=== PATIENT | male | born 1940 | race Caucasian/White ===

== ENCOUNTER 2016-07-04 22:04 | Emergency (ER) | payer OTHER ==
--- NOTE | 2016-07-05 00:16 | DIAGNOSTIC IMAGING REPORT ---
PROCEDURE: XR CHEST 2 VIEW INDICATION: CHEST PAIN TECHNIQUE: PA and lateral views. COMPARISON: None. FINDINGS: Allowing for overlying wires and electrodes, lungs are clear. Heart and mediastinum are normal. Thorax is normal. IMPRESSION: 1. Negative chest.
--- NOTE | 2016-07-05 00:35 | DIAGNOSTIC IMAGING REPORT ---
PROCEDURE: CT SINUS/FACIAL BONES W/CONT INDICATION: FACIAL TRAUMA TECHNIQUE: Noncontrast axial images with sagittal and coronal reformations. COMPARISON: Compared to a head CT on 07/04/2016. FINDINGS: There is an old blowout fracture of the medial wall of the right orbit. There is degeneration and calcification of the right orbital globe. Osseous structures are otherwise normal. No evidence of facial fracture. There is mild mucosal thickening in the maxillary sinuses (appears chronic). Sinuses and mastoids are otherwise normal. IMPRESSION: 1. There is an old blowout fracture of the medial right orbit. 2. Associated degeneration and calcification of the right orbital globe. 3. Otherwise negative CT of the facial bones. No evidence of acute fracture. 4. Findings discussed with Dr. Abilio Marinelli.
--- NOTE | 2016-07-05 00:35 | DIAGNOSTIC IMAGING REPORT ---
PROCEDURE: CT HEAD WITHOUT CONTRAST INDICATION: TRAUMA/INJURY TECHNIQUE: Noncontrast axial images with sagittal and coronal reformations. COMPARISON: Compared to a head CT on 02/20/2014. FINDINGS: Mild old small vessel disease of the white matter. Brain and ventricles are otherwise normal. No evidence of an acute process or hemorrhage. Sinuses and mastoids are normal. Degeneration and calcification right orbital globe (no change). IMPRESSION: 1. Mild old small vessel disease. 2. Otherwise negative head CT. No evidence of acute process. 3. Findings discussed with Dr. Abilio Marinelli. All CT scans at this facility use dose modulation, iterative reconstruction, and/or weight-based dosing when appropriate to reduce radiation dose to as low as reasonably achievable.
--- NOTE | 2016-07-05 00:36 | DIAGNOSTIC IMAGING REPORT ---
PROCEDURE: CT CERVICAL SPINE W/O CONTRAST INDICATION: TRAUMA/INJURY TECHNIQUE: Noncontrast axial images with sagittal and coronal reformations. COMPARISON: None. FINDINGS: There are moderate to marked degenerative changes of the cervical spine with multilevel disc space narrowing and moderate facet disease. There are moderately chronically bulging discs C5-6 and C6-7 with moderate narrowing of the central canal and neural foramina. There is an old avulsion fracture of the C7 spinous process with ossification of the ligamentum nuchae (incidental finding). Osseous structures and disc spaces are otherwise normal. No evidence of an acute process or fracture. Alignment is normal. IMPRESSION: 1. Moderate to marked degenerative changes. 2. Moderately chronically bulging discs at C5-6 and C6-7 with moderate narrowing of the central canal and neural foramina. 3. Old avulsion fracture of the C7 spinous process with dystrophic ossification of the ligamentum nuchae. 4. No evidence of acute process or fracture 5. Findings discussed with Dr. Marinelli. All CT scans at this facility use dose modulation, iterative reconstruction, and/or weight-based dosing when appropriate to reduce radiation dose to as low as reasonably achievable.
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
--- NOTE | 2016-07-05 05:16 | ED ORDER SUMMARY ---
..... Patient: JACKELINE GILL OrderSheet [facility] VisitID: [id number] [place] [address] 75y, M Registration Date/Time: 07/04/2016 ORDER SHEET Weight: 113.3 kg (stated) Allergies: NKDA GENERAL ORDERS: Chest 2V Urgent (22:55 07/04/2016 EKoroleva P.A.-C) (Ack 22:56 SRedmond) (23:48 GUnger) Jig Grinder (Continuous) (22:55 07/04/2016 EKoroleva P.A.-C) (Ack 22:56 SRedmond) (23:04 SRedmond) Cardiac Panel Stat (22:56 07/04/2016 EKoroleva P.A.-C) (Ack 22:57 SRedmond) (23:57 RCollier R.N.) PTT Urgent (22:56 07/04/2016 EKoroleva P.A.-C) (Ack 22:57 SRedmond) (23:57 RCollier R.N.) PT with INR Urgent (22:56 07/04/2016 EKoroleva P.A.-C) (Ack 22:57 SRedmond) (23:57 RCollier R.N.) UA-Culture if indicated Urgent (22:56 07/04/2016 EKoroleva P.A.-C) (Ack 22:57 SRedmond) (0:22 CFalkner R.N.) EKG - ER Stat (22:56 07/04/2016 EKoroleva P.A.-C) (Ack 22:56 SRedmond) (23:04 SRedmond) CT Head wo Cont Urgent (22:56 07/04/2016 EKoroleva P.A.-C) (Ack 22:57 SRedmond) (23:48 GUnger) CT Cervical Spine wo Cont Urgent (22:56 07/04/2016 EKoroleva P.A.-C) (Ack 22:57 SRedmond) (23:48 GUnger) CT Sinus/Facial Bones w Cont Urgent (22:56 07/04/2016 EKoroleva P.A.-C) (Ack 22:57 SRedmond) (23:48 GUnger) Ethyl Alcohol Urgent (22:57 07/04/2016 EKoroleva P.A.-C) (Ack 22:57 SRedmond) (23:57 RCollier R.N.) Urine Drug Screen Urgent (22:57 07/04/2016 EKoroleva P.A.-C) (Ack 22:57 SRedmond) (0:22 CFalkner R.N.) MEDICATION ORDERS: Tdap IM 0.5 mL (NOW, per protocol) (00:24 07/05/2016 Adela FLORES) (Ack 0:29 RCollier R.N.) (1:27 RCollier R.N.) KCl PO 20 meq (NOW) (00:37 07/05/2016 Adela FLORES) (Ack 1:08 RCollier R.N.) (1:26 RCollier R.N.) IV FLUIDS: IV Saline Lock (22:56 07/04/2016 EKoroleva P.A.-C) (Ack 23:07 RCollier R.N.) IV NS : initial bolus 500 mL (1000 mL/hr), then 125 mL/hr for 4h (NOW); Urgent (00:29 07/05/2016 Adela FLORES) (Ack 0:29 RCollier R.N.) (1:24 RCollier R.N.) KCl IV 20 meq/100mL (HIGH ALERT MEDICATION, NOW, Run no faster than 10 mEq/hr) (00:37 07/05/2016 Adela FLORES) (Ack 1:08 RCollier R.N.) (1:25 RCollier R.N.) ORDER SHEET NOTES: [Electronically signed by Shabnam Celis R.N. (09:56 07/05/2016)] [Electronically signed by Abilio Marinelli MD (02:39 07/10/2016)] [Electronically locked/signed by Shabnam Celis R.N. (09:56 07/05/2016)]
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
--- NOTE | 2016-07-05 05:16 | ED ORDER SUMMARY ---
..... Patient: JACKELINE GILL [facility] VisitID: [id number] [place] [address] 75y, M Registration Date/Time: 07/04/2016 ORDER SHEET Weight: 113.3 kg (stated) Allergies: NKDA GENERAL ORDERS: Chest 2V Urgent (22:55 07/04/2016 EKoroleva P.A.-C) (Ack 22:56 SRedmond) (23:48 GUnger) Double End Tenon Operator (Continuous) (22:55 07/04/2016 EKoroleva P.A.-C) (Ack 22:56 SRedmond) (23:04 SRedmond) Cardiac Panel Stat (22:56 07/04/2016 EKoroleva P.A.-C) (Ack 22:57 SRedmond) (23:57 RCollier R.N.) PTT Urgent (22:56 07/04/2016 EKoroleva P.A.-C) (Ack 22:57 SRedmond) (23:57 RCollier R.N.) PT with INR Urgent (22:56 07/04/2016 EKoroleva P.A.-C) (Ack 22:57 SRedmond) (23:57 RCollier R.N.) UA-Culture if indicated Urgent (22:56 07/04/2016 EKoroleva P.A.-C) (Ack 22:57 SRedmond) (0:22 CFalkner R.N.) EKG - ER Stat (22:56 07/04/2016 EKoroleva P.A.-C) (Ack 22:56 SRedmond) (23:04 SRedmond) CT Head wo Cont Urgent (22:56 07/04/2016 EKoroleva P.A.-C) (Ack 22:57 SRedmond) (23:48 GUnger) CT Cervical Spine wo Cont Urgent (22:56 07/04/2016 EKoroleva P.A.-C) (Ack 22:57 SRedmond) (23:48 GUnger) CT Sinus/Facial Bones w Cont Urgent (22:56 07/04/2016 EKoroleva P.A.-C) (Ack 22:57 SRedmond) (23:48 GUnger) Ethyl Alcohol Urgent (22:57 07/04/2016 EKoroleva P.A.-C) (Ack 22:57 SRedmond) (23:57 RCollier R.N.) Urine Drug Screen Urgent (22:57 07/04/2016 EKoroleva P.A.-C) (Ack 22:57 SRedmond) (0:22 CFalkner R.N.) MEDICATION ORDERS: Tdap IM 0.5 mL (NOW, per protocol) (00:24 07/05/2016 Adela FLORES) (Ack 0:29 RCollier R.N.) (1:27 RCollier R.N.) KCl PO 20 meq (NOW) (00:37 07/05/2016 Adela FLORES) (Ack 1:08 RCollier R.N.) (1:26 RCollier R.N.) IV FLUIDS: IV Saline Lock (22:56 07/04/2016 EKoroleva P.A.-C) (Ack 23:07 RCollier R.N.) IV NS : initial bolus 500 mL (1000 mL/hr), then 125 mL/hr for 4h (NOW); Urgent (00:29 07/05/2016 Adela FLORES) (Ack 0:29 RCollier R.N.) (1:24 RCollier R.N.) KCl IV 20 meq/100mL (HIGH ALERT MEDICATION, NOW, Run no faster than 10 mEq/hr) (00:37 07/05/2016 Adela FLORES) (Ack 1:08 RCollier R.N.) (1:25 RCollier R.N.) ORDER SHEET NOTES: [Electronically signed by Shabnam Celis R.N. (09:56 07/05/2016)] [Electronically signed by Abilio Marinelli MD (02:39 07/10/2016)] [Electronically locked/signed by Shabnam Celis R.N. (09:56 07/05/2016)]
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
--- NOTE | 2016-07-10 02:39 | ED MED RECONCILIATION SUMMARY ---
Patient: JACKELINE GILL Medication Reconciliation Report [facility] VisitID: [id number] [address] [place] [address] 75y, M Registration Date/Time: 07/04/2016 Weight: 113.3 kg Height/Length: 71 in. BMI: 34.9 ALLERGIES: NKDA The patient's Home Medications are listed below: CONTINUE TAKING THE FOLLOWING MEDICATIONS: Metoprolol 50 mg, daily Simvastatin Oral 40,g, daily The source(s) of the original Home Medication information: Not obtained. The following Medications were given to the patient in the Emergency Department: IV NS IV Fluids bolus 500 mL over 30 minute(s), then 125 mL/hr, administered: 07/05/2016 1:19:00 AM KCL [IVPB] IVPB bolus 0, then 20 meq 50 mL/hr, administered: 07/05/2016 1:20:00 AM KCL [PO] PO 20 meq, administered: 07/05/2016 1:21:00 AM TDAP [IM] IM 0.5 mL, administered: 07/05/2016 1:23:00 AM The following Medications were prescribed to the patient: K-Dur 20 mEq: take 1 orally. Dispense five (5). No refills. Substitution is permissible. -- Abilio Marinelli MD
--- NOTE | 2016-07-10 02:39 | ED MED RECONCILIATION SUMMARY ---
Patient: JACKELINE GILL Medication Reconciliation Report [facility] VisitID: [id number] [address] [place] [address] 75y, M Registration Date/Time: 07/04/2016 Weight: 113.3 kg Height/Length: 71 in. BMI: 34.9 ALLERGIES: NKDA The patient's Home Medications are listed below: CONTINUE TAKING THE FOLLOWING MEDICATIONS: Metoprolol 50 mg, daily Simvastatin Oral 40,g, daily The source(s) of the original Home Medication information: Not obtained. The following Medications were given to the patient in the Emergency Department: IV NS IV Fluids bolus 500 mL over 30 minute(s), then 125 mL/hr, administered: 07/05/2016 1:19:00 AM KCL [IVPB] IVPB bolus 0, then 20 meq 50 mL/hr, administered: 07/05/2016 1:20:00 AM KCL [PO] PO 20 meq, administered: 07/05/2016 1:21:00 AM TDAP [IM] IM 0.5 mL, administered: 07/05/2016 1:23:00 AM The following Medications were prescribed to the patient: K-Dur 20 mEq: take 1 orally. Dispense five (5). No refills. Substitution is permissible. -- Abilio Marinelli MD
--- NOTE | 2016-07-10 02:39 | ED MAR SUMMARY ---
..... Medication Administration Record [facility] [address] [place] [address] Patient: JACKELINE GILL Visit ID: [id number] 75y, M Weight: 113.3 kg Height/Length: 71 in BMI: 34.9 ALLERGIES: NKDA Start 01:19 07/05/2016 Marifer Case R.N., Stop 05:41 07/05/2016 Marifer Case R.N. Medication Administered: IV NS (SALINE), Dose: IV Fluids, Rate: 125 mL/hr, Bolus: 500 mL over 30 minute(s), Dispensed: 1000 mL bag, Site: #1 right AC. Medication Ordered: IV NS : initial bolus 500 mL (1000 mL/hr), then 125 mL/hr for 4h (NOW); Urgent. Start 01:07/05/2016 Marifer Case R.N., Stop 03:11 07/05/2016 Shantel Brooks Medication Administered: KCL [IVPB] (POTASSIUM CHLORIDE), Dose: 20 meq IVPB over 2 hour(s), Rate: 50 mL/hr, Dispensed: 100 mL bag, Site: #1 right AC. Medication Ordered: KCl IV 20 meq/100mL (HIGH ALERT MEDICATION, NOW, Run no faster than 10 mEq/hr). Given 01:07/05/2016 Marifer Case R.N. Medication Administered: KCL [PO] (POTASSIUM CHLORIDE ER), Dose: 20 meq Tablets PO. Medication Ordered: KCl PO 20 meq (NOW). Given 01:07/05/2016 Marifer Case R.N. Medication Administered: TDAP [IM], Dose: 0.5 mL IM. Medication Ordered: Tdap IM 0.5 mL (NOW, per protocol).
--- NOTE | 2016-07-10 02:39 | ED MAR SUMMARY ---
..... Medication Administration Record [facility] [address] [place] [address] Patient: JACKELINE GILL Visit ID: [id number], M Weight: 113.3 kg Height/Length: 71 in BMI: 34.9 ALLERGIES: NKDA Start 01:19 07/05/2016 Marifer Case R.N., Stop 05:41 07/05/2016 Marifer Case R.N. Medication Administered: IV NS (SALINE), Dose: IV Fluids, Rate: 125 mL/hr, Bolus: 500 mL over 30 minute(s), Dispensed: 1000 mL bag, Site: #1 right AC. Medication Ordered: IV NS : initial bolus 500 mL (1000 mL/hr), then 125 mL/hr for 4h (NOW); Urgent. Start 01:07/05/2016 Marifer Case R.N., Stop 03:11 07/05/2016 Shantel Brooks Medication Administered: KCL [IVPB] (POTASSIUM CHLORIDE), Dose: 20 meq IVPB over 2 hour(s), Rate: 50 mL/hr, Dispensed: 100 mL bag, Site: #1 right AC. Medication Ordered: KCl IV 20 meq/100mL (HIGH ALERT MEDICATION, NOW, Run no faster than 10 mEq/hr). Given 01:07/05/2016 Marifer Case R.N. Medication Administered: KCL [PO] (POTASSIUM CHLORIDE ER), Dose: 20 meq Tablets PO. Medication Ordered: KCl PO 20 meq (NOW). Given 01:07/05/2016 Mraifer Case R.N. Medication Administered: TDAP [IM], Dose: 0.5 mL IM. Medication Ordered: Tdap IM 0.5 mL (NOW, per protocol).
== END 2016-07-05 07:30 | disposition home or self-care (01) ==
LOC: ED SRH 22:04
DX: R55 Syncope and collapse (principal); E87.6 Hypokalemia; S09.90XA Unspecified injury of head, initial encounter; S00.431A Contusion of right ear, initial encounter; F10.129 Alcohol abuse with intoxication, unspecified; V47.5XXA Car driver injured in collision with fixed or stationary object in traffic accident, initial encounter; S00.33XA Contusion of nose, initial encounter; Y93.89 Activity, other specified; Y99.8 Other external cause status; Y92.410 Unspecified street and highway as the place of occurrence of the external cause
CPT/HCPCS: 90100; 90616; 92010; 92610; 92720; 92760; 92761; 92762; 92763; 92764; 92765; 92766; 92767; 94001; 94060; 95059